=== PATIENT | female | born 1980 | race Caucasian/White ===

== ENCOUNTER 2022-12-15 22:57 | Emergency (ER) | payer MEDICAID ==
[~2022-12-15] VITALS: Ht 167.6 cm; Wt 57.6 kg
[2022-12-15] MEDS ORDERED: IBUPROFEN 400 MG TABLET ONE (23:49)
[2022-12-15] MEDS ORDERED: ACETAMINOPHEN 325 MG TABLET ONE (23:53)
[2022-12-16] MEDS ORDERED: IBUPROFEN 400 MG TABLET PO ONE
[2022-12-16] MEDS ORDERED: ACETAMINOPHEN 325 MG TABLET PO ONE
[2022-12-16] MEDS ORDERED: AZIT250T13 PO (00:41)
[2022-12-16] MEDS ORDERED: AZITHROMYCIN 250 MG TABLET ONE (00:46)
[2022-12-16 00:53] VITALS: BP 109/69; TEMP 99; O2SAT 98
[2022-12-16] MEDS ORDERED: AZITHROMYCIN 250 MG TABLET PO ONE (01:00)
== END 2022-12-16 00:54 | disposition home or self-care (01) ==
LOC: ER 23:17
DX: J40 Bronchitis, not specified as acute or chronic (principal); L55.9 Sunburn, unspecified; Z20.822 Contact with and (suspected) exposure to COVID-19
CPT/HCPCS: 99284; 71045; 87426; 87804 ×2; C9803